=== PATIENT | female | born 1940 ===

== ENCOUNTER 2021-02-20 07:25 | Day surgery (SDC) | payer OTHER ==
[~2021-02-20 07:25] MED LIST: CARV PO; ENALAPRIL MALE2.5 MG PO; GLIPIZIDE XL2.5 MG PO; HUMULIN PEN; NTG SL; SIMVAST PO; SINGULAIR10 MG PO; TEMAZEPAM30 MG PO; VERAPA PO; [UNRECOGNIZED DRUG - OTHER]; [UNRECOGNIZED DRUG - OTHER]
== END 2021-02-20 17:25 | disposition home or self-care (01) ==
LOC: CIR.AMB 07:25
PROVIDERS: ATTEND Colon & Rectal Surgery
DX: D12.8 Benign neoplasm of rectum (principal); K62.3 Rectal prolapse; K64.8 Other hemorrhoids; K64.1 Second degree hemorrhoids; Z20.822 Contact with and (suspected) exposure to COVID-19

== ENCOUNTER 2021-07-15 10:15 | Inpatient (IN) | payer OTHER ==
[~2021-07-15] VITALS: Ht 154.9 cm; Wt 63.5 kg
[~2021-07-15 10:15] MED LIST changes: +BUSPIRONE HCL7.5 MG PO; +COZAAR100 MG PO; +VERAPAM PO
[2021-07-18] MEDS ORDERED: SERTRALINE HCL50 MG (08:16)
[2021-07-18] MEDS ORDERED: BUSPIRONE HCL5 MG (08:16)
[2021-07-18] MEDS ORDERED: HUMULIN N100 UNIT/1 (08:16)
[2021-07-18] MEDS ORDERED: ATORVASTATIN CA10 MG (08:16)
[2021-07-18] MEDS ORDERED: VERAPAMIL HCL40 MG (08:16)
[2021-07-18] MEDS ORDERED: CARVEDILOL3.125 M1 (08:17)
[2021-07-18] MEDS ORDERED: SIMVASTATIN20 MG PO (08:18)
[2021-07-18] MEDS ORDERED: NITROGLYCERIN0.4 MG (08:23)
== END 2021-07-18 17:43 | disposition home or self-care (01) | DRG 349 ==
LOC: SURH 07-17 07:00 → O/R 07-17 08:15 → SURH 07-17 08:15
PROVIDERS: ADMIT Colon & Rectal Surgery; ATTEND Colon & Rectal Surgery
PROC: 0DUR0JZ Supplement Anal Sphincter with Synthetic Substitute, Open Approach (ICD-10-PCS; 2021-07-17)
PROC: 0DBP7ZZ Excision of Rectum, Via Natural or Artificial Opening (ICD-10-PCS; principal; 2021-07-17 07:00)
DX: K62.3 Rectal prolapse (principal); Z20.822 Contact with and (suspected) exposure to COVID-19

== ENCOUNTER 2022-04-07 06:00 | Day surgery (SDC) | payer OTHER ==
[~2022-04-07] VITALS: Ht 152.4 cm; Wt 59.0 kg
[~2022-04-07 06:00] MED LIST changes: +ATORVASTATIN CA10 MG; +BUSPIRONE HCL5 MG; +CARVEDILOL3.125 M1 PO; +HUMULIN N100 UNIT/1; +LEXAPRO5 MG PO; +NITROGLYCERIN0.4 MG; +PEPCID40 MG PO; +PROAIR HFA8.5 GM IH; +SERTRALINE HCL50 MG; +SIMVASTATIN20 MG PO; +VERAPAMIL HCL40 MG; +VERAPAMIL HCL40 MG PO
== END 2022-04-07 17:00 | disposition home or self-care (01) ==
LOC: CIR.AMB 06:00
PROVIDERS: ATTEND Colon & Rectal Surgery
DX: R15.9 Full incontinence of feces (principal); Z20.822 Contact with and (suspected) exposure to COVID-19; Z88.0 Allergy status to penicillin; Z88.6 Allergy status to analgesic agent; Z88.8 Allergy status to other drugs, medicaments and biological substances; I11.9 Hypertensive heart disease without heart failure; I25.2 Old myocardial infarction; I25.10 Atherosclerotic heart disease of native coronary artery without angina pectoris; J45.909 Unspecified asthma, uncomplicated; E11.9 Type 2 diabetes mellitus without complications; Z79.84 Long term (current) use of oral hypoglycemic drugs
CPT/HCPCS: 64581; 95971; C1778

== ENCOUNTER 2024-05-19 09:00 | Inpatient (IN) | payer OTHER ==
[~2024-05-19] VITALS: Ht 154.9 cm; Wt 63.5 kg
[2024-05-19 11:47] LABS: HEMATOCRIT 39.8 % (36.0-45.00); HEMOGLOBIN 13.6 g/dL (12.0-15.00); MEAN CORPUSCULAR HEMOGLOBIN 32.6 pg (27.00-32.0); MEAN CORPUSCULAR HGB CONC 34.3 g/dl (32.0-36.0); PLATELET COUNT 168 K/uL (150-450); RED BLOOD COUNT 4.19 M/uL (4.00-6.00)
[2024-05-19 11:52] LABS: PH,URINE 5.5 (5.0-8.0); URINE APPEARANCE Cloudy; URINE BILIRRUBIN Negative (NEGATIVE); URINE BLOOD Trace; URINE COLOR Yellow; URINE GLUCOSE Negative (NEGATIVE); URINE KETONE Negative (NEGATIVE); URINE LEUKOCYTE Small; URINE NITRATE Positive; URINE PROTEIN 30 (NEGATIVE)
[2024-05-19 11:53] LABS: URINE EPITHELIAL CELLS 37.8 uL (0.0-38.8); URINE RBC 3.3 uL (0.0-20.8); URINE WBC 452.5 uL (0.0-23.2)
[2024-05-19 12:02] LABS: INR 1.07; PARTIAL THROMBOPLASTIN TIME 26.5 SECONDS (22.0-34.0); PROTHROMBIN TIME 11.6 SECONDS (9.0-11.5)
[2024-05-19 12:09] LABS: URINE BACTERIA > 9821.5 uL (0.0-1933); URINE CAST 0.44 uL (0.0-1.40)
[2024-05-19 12:32] VITALS: BP 140/60
[2024-05-19 12:55] LABS: ALBUMIN 3.8 gm/dL (3.4-5.0); BILIRUBIN TOTAL 0.76 mg/dL (0.3-1.2); CALCIUM 9.8 mg/dL (8.5-10.1); CREATININE SERUM 0.87 mg/dL (0.55-1.02); GFR 62.33; POTASSIUM 4.39 mEq/L (3.5-5.1); TOTAL PROTEIN 7.8 gm/dL (6.4-8.2); TSH 1.2 uIU/mL (0.358-3.74)
[2024-05-19 13:03] LABS: RH POSITIVE
[2024-05-30] MEDS ORDERED: levoFLOXacin IN DEXTROSE 5 % 5 MG/ML PIGGYBAG IV SCH (13:00)
[2024-05-30] MEDS ORDERED: POVIDONE-IODINE 118 ML BOTT TOP ONE (13:00)
[2024-05-30] MEDS ORDERED: METRONIDAZOLE/SODIUM CHLORIDE 500 MG/100 ML PIGGYBACK IV SCH (13:00)
[2024-05-30] MEDS ORDERED: HEMOSTATIC MATRIX 1 KIT KIT TOP ONE (13:15)
[2024-05-30] MEDS ORDERED: DIBUCAINE 30 GM TUBE RECTAL ONE (13:15)
[2024-05-30] MEDS ORDERED: BUPIVACAINE HCL 30 ML VIAL IJ ONE (13:15)
[2024-05-30] MEDS ORDERED: LIDOCAINE HCL 1%/EPINEPHRINE 20ML VIAL IJ ONE (13:15)
[2024-05-30] MEDS ORDERED: MORPHINE SULFATE 2 MG/ML CARTRIDGE IV PRN (15:15)
[2024-05-30] MEDS ORDERED: ONDANSETRON HCL 2 MG/ML VIAL IV PRN (15:15)
[2024-05-30] MEDS ORDERED: RINGERS SOLUTION,LACTATED 1,000 ML IV SCH (15:15)
[2024-05-30] MEDS ORDERED: DEXTROSE 50 % IN WATER 0.5 G/ML DISP.SYRIN IV PRN (15:15)
[2024-05-30] MEDS ORDERED: MORPHINE SULFATE 2 MG/ML CARTRIDGE IV ONE (16:00)
[2024-05-30] MEDS ORDERED: ENALAPRILAT DIHYDRATE 1.25 MG/ML VIAL IV PRN (16:45)
[2024-05-30 16:56] LABS: HEMATOCRIT 40.2 % (36.0-45.00); HEMOGLOBIN 13.5 g/dL (12.0-15.00); MEAN CELL VOLUME 94.8 fL (80.00-100.00); MEAN CORPUSCULAR HEMOGLOBIN 31.7 pg (27.00-32.0); MEAN CORPUSCULAR HGB CONC 33.5 g/dl (32.0-36.0); PLATELET COUNT 173 K/uL (150-450); RED BLOOD COUNT 4.25 M/uL (4.00-6.00); RED CELL DISTRIBUTION WIDTH 12.1 % (11.5-14.5)
[2024-05-30] MEDS ORDERED: BUSPIRONE HCL 5 MG TABLET PO SCH (17:00)
[2024-05-30] MEDS ORDERED: SIMVASTATIN 20 MG TABLET PO SCH (17:00)
[2024-05-30] MEDS ORDERED: POLYETHYLENE GLYCOL 3350 17 GM BLIST.PACK PO SCH (17:00)
[2024-05-30] MEDS ORDERED: CARVEDILOL 6.25 MG TABLET PO SCH (17:00)
[2024-05-30 17:28] LABS: ALBUMIN 3.6 gm/dL (3.4-5.0); CALCIUM 9.7 mg/dL (8.5-10.1); GFR 53.08; MAGNESIUM 1.6 mg/dL (1.8-2.4); PHOSPHOROUS 2.6 mg/dL (2.5-4.9); POTASSIUM 4.12 mEq/L (3.5-5.1)
[2024-05-30] MEDS ORDERED: ACETAMINOPHEN 500 MG GEL..CAP PO SCH (18:00)
[2024-05-30 19:00] VITALS: BP 125/72; O2SAT 95
[2024-05-30] MEDS ORDERED: TEMAZEPAM 15 MG CAPSULE PO SCH (21:00)
[2024-05-30] MEDS ORDERED: FAMOTIDINE/PF 20 MG/2 ML VIAL IV PUSH SCH (21:00)
[2024-05-31 00:29] VITALS: BP 112/67; O2SAT 94
[2024-05-31 06:54] LABS: HEMATOCRIT 37.4 % (36.0-45.00); HEMOGLOBIN 12.7 g/dL (12.0-15.00); MEAN CELL VOLUME 95.5 fL (80.00-100.00); MEAN CORPUSCULAR HEMOGLOBIN 32.4 pg (27.00-32.0); PLATELET COUNT 144 K/uL (150-450); RED BLOOD COUNT 3.92 M/uL (4.00-6.00); RED CELL DISTRIBUTION WIDTH 12.1 % (11.5-14.5)
[2024-05-31 07:35] LABS: ALBUMIN 3.1 gm/dL (3.4-5.0); CALCIUM 8.9 mg/dL (8.5-10.1); CREATININE SERUM 1.17 mg/dL (0.55-1.02); GFR 44.28; MAGNESIUM 1.5 mg/dL (1.8-2.4); PHOSPHOROUS 4.4 mg/dL (2.5-4.9); POTASSIUM 3.87 mEq/L (3.5-5.1)
[2024-05-31 08:13] VITALS: BP 154/66; O2SAT 97
[2024-05-31] MEDS ORDERED: ENALAPRIL MALEATE 2.5 MG TABLET PO SCH (09:00)
[2024-05-31] MEDS ORDERED: NITROFURANTOIN MONOHYD/M-CRYST 100 MG CAPSULE PO SCH (09:00)
[2024-05-31] MEDS ORDERED: VERAPAMIL HCL 40 MG TABLET PO SCH (09:00)
[2024-05-31] MEDS ORDERED: NAPH,MB-DB/K PH,MBDB 1 PKT PACKET PO SCH (09:00)
[2024-05-31] MEDS ORDERED: ATORVASTATIN CALCIUM 10 MG TABLET PO SCH (09:00)
[2024-05-31] MEDS ORDERED: LACTOBACILLUS ACIDOPHILUS 1 CAP CAP PO SCH (09:00)
[2024-05-31] MEDS ORDERED: MAGNESIUM SULFATE IN WATER 2 GM/50 ML PIGGYBAG IV NR (11:00)
[2024-05-31] MEDS ORDERED: ENOXAPARIN SODIUM 40 MG/0.4 ML SYRINGE SUBCUTANEO SCH (17:00)
== END 2024-05-31 16:40 | disposition home or self-care (01) | DRG 330 ==
LOC: SURH 05-30 06:58 → O/R 05-30 06:58 → SURH 05-30 08:45
PROVIDERS: ADMIT Colon & Rectal Surgery; ATTEND Colon & Rectal Surgery
PROC: 0DBP0ZZ Excision of Rectum, Open Approach (ICD-10-PCS; 2024-05-30)
PROC: 0DUR0JZ Supplement Anal Sphincter with Synthetic Substitute, Open Approach (ICD-10-PCS; 2024-05-30)
PROC: 0DTNFZZ Resection of Sigmoid Colon, Via Natural or Artificial Opening With Percutaneous Endoscopic Assistance (ICD-10-PCS; principal; 2024-05-30 08:45)
DX: K62.3 Rectal prolapse (principal); N39.0 Urinary tract infection, site not specified; D12.8 Benign neoplasm of rectum; Z86.0100 Personal history of colon polyps, unspecified; I10 Essential (primary) hypertension; R15.9 Full incontinence of feces; F32.4 Major depressive disorder, single episode, in partial remission; R33.9 Retention of urine, unspecified; Z20.822 Contact with and (suspected) exposure to COVID-19